=== PATIENT | female | born 1955 | race Two or more races ===

== ENCOUNTER 2017-11-09 16:20 | Emergency (ER) | payer MEDICAID ==
[~2017-11-09] VITALS: Ht 162.6 cm; Wt 59.0 kg
[2017-11-09 22:36] VITALS: BP 130/80
== END 2017-11-09 23:18 | disposition home or self-care (01) ==
LOC: ER 16:20
DX: R51 Headache (principal); R31.9 Hematuria, unspecified; R42 Dizziness and giddiness; E11.9 Type 2 diabetes mellitus without complications; F32.9 Major depressive disorder, single episode, unspecified
CPT/HCPCS: 70450; 82962; 99285; Z7610; 99284